=== PATIENT | female | born 1940 | race Caucasian/White ===

== ENCOUNTER 2017-04-12 11:20 | Outpatient (CLI) | payer OTHER | END 2017-04-12 11:21 | disposition short-term general hospital (02) | LOC: AMBL 11:20 | PROVIDERS: ATTEND Emergency Medicine | DX: R07.89 Other chest pain (principal); I10 Essential (primary) hypertension; V89.2XXA Person injured in unspecified motor-vehicle accident, traffic, initial encounter; W22.11XA Striking against or struck by driver side automobile airbag, initial encounter ==